=== PATIENT | female | born 1945 | race Caucasian/White ===

== ENCOUNTER 2022-01-29 23:01 | Emergency (ER) | payer OTHER, BC ==
[2022-01-29 23:21] VITALS: BP 152/90; PULSE 68; RESP 17; TEMP 99.3; BMI 32.3
== END 2022-01-30 09:25 | disposition home or self-care (01) ==
LOC: FER 23:01 → SUPCPDRO 23:01 → FER 01-30 09:25
DX: S80.00XA Contusion of unspecified knee, initial encounter (principal)
CPT/HCPCS: 73560-TC-LT-FY; 73560-TC-RT-FY; 99284-25

== ENCOUNTER 2023-01-01 22:03 | Emergency (ER) | payer OTHER, BC ==
[2023-01-01 22:08] VITALS: BP 157/92; PULSE 94; RESP 20; BMI 25.8
== END 2023-01-01 22:16 ==
LOC: FER 22:03
DX: Z04.3 Encounter for examination and observation following other accident (principal)
CPT/HCPCS: 99283-25

== ENCOUNTER 2023-07-08 09:47 | Emergency (ER) | payer OTHER, BC ==
[2023-07-08 09:57] VITALS: TEMP 99; BMI 29.9
[2023-07-08 11:21] VITALS: BP 182/85; PULSE 57; RESP 20
== END 2023-07-08 11:28 | disposition home or self-care (01) ==
LOC: FER 09:47
DX: S80.01XA Contusion of right knee, initial encounter (principal); S80.02XA Contusion of left knee, initial encounter; S90.01XA Contusion of right ankle, initial encounter; W01.0XXA Fall on same level from slipping, tripping and stumbling without subsequent striking against object, initial encounter
CPT/HCPCS: 99282-25

== ENCOUNTER 2024-02-20 20:04 | Emergency (ER) | payer OTHER, BC ==
[2024-02-20 20:23] VITALS: RESP 18; BMI 33.4
[2024-02-20] MEDS ORDERED: ACETAMINOPHEN 500 MG TABLET (FP) ONE (21:18)
[2024-02-20] MEDS: ACETAMINOPHEN 500 MG TABLET (FP) PO ONE (21:22)
[2024-02-20 23:14] VITALS: BP 155/80; PULSE 71; TEMP 97.6
== END 2024-02-21 01:43 | disposition home or self-care (01) ==
LOC: FER 20:04
DX: S70.01XA Contusion of right hip, initial encounter (principal); W18.2XXA Fall in (into) shower or empty bathtub, initial encounter
CPT/HCPCS: 70450-TC; 72170-TC-FY; 73502-TC-RT-FY; 99284-25